=== PATIENT | male | born 1980 | race Hispanic/Latino ===

== ENCOUNTER 2019-05-25 12:49 | Outpatient (CLI) | payer BC ==
--- NOTE | 2019-05-25 13:44 | RAD ---
RIGHT KNEE TWO VIEWS: 05/25/19 COMPARISON: None. HISTORY: Twisted knee playing basketball. FINDINGS: No knee joint effusion, displaced fracture, or evidence of dislocation. Mild posterior patellar osteo phyte formation noted involving the inferior right patellar pole. IMPRESSION: No acute fracture or dislocation. POS: [facility]
== END 2019-05-25 12:50 | disposition home or self-care (01) ==
LOC: BICRAD 12:49
DX: M25.561 Pain in right knee (principal)

== ENCOUNTER 2024-11-24 16:07 | Outpatient (CLI) | payer OTHER | END 2024-11-24 16:08 | disposition home or self-care (01) | LOC: BICRAD 16:07 | PROVIDERS: ATTEND Family Medicine | DX: M25.511 Pain in right shoulder (principal); M19.011 Primary osteoarthritis, right shoulder ==